=== PATIENT | male | born 1945 | race African-American/Black ===

== ENCOUNTER 2020-09-22 11:39 | Outpatient (RCR) | payer OTHER | END 2020-09-24 | LOC: RESP 11:39 | DX: J44.9 Chronic obstructive pulmonary disease, unspecified (principal); R06.00 Dyspnea, unspecified ==

== ENCOUNTER 2020-10-18 10:49 | Outpatient (RCR) | payer MEDICARE | END 2020-10-22 | LOC: RESP 10:49 | DX: J44.9 Chronic obstructive pulmonary disease, unspecified (principal) | CPT/HCPCS: G0238 ×5; G0424 ×5 ==

== ENCOUNTER → 2020-11-22 | Outpatient (RCR) | payer MEDICARE | LOC: RESP 10-23 10:55 | DX: J44.9 Chronic obstructive pulmonary disease, unspecified (principal) | CPT/HCPCS: G0238 ×10; G0424 ×10 ==

== ENCOUNTER 2020-12-20 10:51 | Outpatient (RCR) | payer OTHER, MEDICARE | END 2020-12-22 | LOC: RESP 10:51 | PROVIDERS: ATTEND Internal Medicine | DX: J44.9 Chronic obstructive pulmonary disease, unspecified (principal); R06.00 Dyspnea, unspecified | CPT/HCPCS: G0238 ×8; G0424 ×8 ==

== ENCOUNTER 2021-01-17 11:00 | Outpatient (RCR) | payer OTHER, MEDICARE | END 2021-01-22 | LOC: RESP 11:00 | PROVIDERS: ATTEND Internal Medicine | DX: J44.9 Chronic obstructive pulmonary disease, unspecified (principal) | CPT/HCPCS: G0238; G0424 ==

== ENCOUNTER 2021-02-05 10:41 | Outpatient (RCR) | payer OTHER, MEDICARE | END 2021-02-21 | LOC: RESP 10:41 | PROVIDERS: ATTEND Internal Medicine | DX: J44.9 Chronic obstructive pulmonary disease, unspecified (principal) | CPT/HCPCS: G0238 ×4; G0424 ×4 ==